=== PATIENT | male | born 1995 | race Caucasian/White ===

== ENCOUNTER 2022-10-07 21:51 | Emergency (ER) | payer OTHER ==
--- NOTE | 2022-10-07 23:00 | NUR ---
Patient was just called to be triaged at this time due to ER full of patient and mulitiple rescues. Patient was not present in the waiting room or outside of ER.
--- NOTE | 2022-10-07 23:45 | NUR ---
Patient was called to be triaged but was not present in the waiting room or outside of ER.
--- NOTE | 2022-10-08 00:20 | NUR ---
Patient was called to be triaged but was not present in the waiting room or outside of ER. PAATIENT WAS NOT TRIAGED OR SEEN BY [facility]MD.
== END 2022-10-08 00:20 | disposition left against medical advice (07) ==
LOC: ER 21:51
DX: Z53.21 Procedure and treatment not carried out due to patient leaving prior to being seen by health care provider (principal)